=== PATIENT | female | born 1985 | race Caucasian/White ===

== ENCOUNTER 2018-10-22 03:35 | Emergency (ER) | payer BC ==
[~2018-10-22] VITALS: Ht 175.3 cm; Wt 148.8 kg
[2018-10-22 04:42] LABS: BILIRUBIN,URINE NEGATIVE (NEG); CLARITY,URINE CLEAR; COLOR,URINE YELLOW; NITRITE,URINE NEGATIVE (NEG); PH,URINE 5.5; PROTEIN,URINE NEGATIVE (NEG-TRACE); UROBILINOGEN,URINE 0.2 mg/dL (0.2 mg/dL)
[2018-10-22 04:45] LABS: BASO # 0.1 x10^3/uL (0.0-0.2); BASO % 1 % (0-3); EOS # 0.3 x10^3/uL (0.0-0.7); EOS % 4 % (0-3); HEMATOCRIT 39.5 % (36.0-47.0); HEMOGLOBIN 13.7 g/dL (12.0-15.5); LYMPH # 2.1 x10^3/uL (1.0-4.8); LYMPH % 28 % (24-48); MEAN CORPUSCULAR HEMOGLOBIN 32 pg (25-35); MEAN CORPUSCULAR HGB CONC 35 g/dL (31-37); MEAN CORPUSCULAR VOLUME 91 fL (79-100); MONO # 0.5 x10^3/uL (0.0-1.1); MONO % 7 % (0-9); NEUT # 4.5 x10^3/uL (1.8-7.7); NEUT % 59 % (31-73); PLATELET COUNT 193 x10^3/uL (140-400); RED BLOOD COUNT 4.35 x10^6/uL (3.50-5.40); RED CELL DISTRIBUTION WIDTH 14.1 % (11.5-14.5); WHITE BLOOD COUNT 7.5 x10^3/uL (4.0-11.0)
[2018-10-22 04:49] VITALS: BP 119/67
[2018-10-22 04:57] LABS: CALCIUM 9.1 mg/dL (8.5-10.1); CREATININE 0.9 mg/dL (0.6-1.0); GFR 72.6; POTASSIUM 3.6 mmol/L (3.5-5.1)
[2018-10-22 04:59] LABS: BACTERIA,URINE MODERATE /HPF (0-FEW); RBC,URINE 20-40 /HPF (0-2)
[2018-10-22 05:00] LABS: SQUAMOUS EPITHELIAL CELL,UR MANY /LPF
[2018-10-22 05:05] LABS: ALBUMIN 3.5 g/dL (3.4-5.0); MAGNESIUM 1.9 mg/dL (1.8-2.4); TOTAL BILIRUBIN 0.7 mg/dL (0.2-1.0)
--- NOTE | 2018-10-22 05:44 | RAD ---
EXAM: OBSTETRIC ULTRASOUND, <14 WEEKS. HISTORY: Vaginal bleeding in . COMPARISON: None. FINDINGS: Sonographic evaluation of the pelvis was performed transabdominally and transvaginally. The uterus is anteverted and measures 16.9 x 9.4 x 8.0 cm. A single intrauterine gestation measures 8 weeks 3 days. No heart motion is identified consistent with demise. The cervix is closed and measures 4.2 cm. The gestational sac is low within the endometrium, near the internal os. The right ovary measures 4.0 x 5.3 x 3.1 cm. It is enlarged by a simple dominant follicle or small cyst measuring 3.8 x 3.5 cm. The left ovary measures 3.5 x 3.1 x 1.4 cm. There is normal Doppler flow bilaterally. There is no adnexal mass. There is no significant free fluid. IMPRESSION: 1. Findings consistent with demise. 2. 3.8 cm right ovarian cyst versus dominant follicle. Electronically signed by: Josephine Venegas MD (10/22/2018 5:42 AM) [facility]
--- NOTE | 2018-10-22 06:17 | PHYS DOC ---
Past Medical History Past Medical History: No Pertinent History Past Surgical History: No Surgical History Additional Information: Nonsmoker Alcohol Use: None Drug Use: None Adult General Chief Complaint Chief Complaint: VAGINAL BLEEDING HPI HPI 33-year-old female presents with report of vaginal bleeding in at approximately 10.5 weeks. Patient is a . Patient reports history of spotting at approximately 8 weeks and the bleeding has not stopped but recently became worse. Patient reports she was seen by her TIN POT OPERATOR and was told everything have looked fine at that time. Patient denies vaginal discharge. Denies concern for STDs. Review of Systems Review of Systems Constitutional: Denies fever or chills Eyes: Denies redness or eye pain HENT: Denies nasal congestion or sore throat Respiratory: Denies cough or shortness of breath Cardiovascular: Denies chest pain or palpitations GI: Reports lower abdominal cramping; denies vomiting /TRAIN CONTROL ELECTRONIC TECHNICIAN: Denies dysuria or hematuria; reports bleeding in Musculoskeletal: Denies back pain or joint pain Integument: Denies rash or skin lesions Neurologic: Denies headache, focal weakness or sensory changes Complete systems were reviewed and found to be within normal limits, except as documented in this note. Allergies Allergies Allergies Coded Allergies Type Severity Reaction Last Updated Verified codeine Adverse Reaction Unknown 10/22/18 Yes Physical Exam Physical Exam Constitutional: Well developed, well nourished, no acute distress, non-toxic appearance HENT: Normocephalic, atraumatic, oropharynx moist Eyes: Conjunctiva normal, no discharge Neck: Normal range of motion, no tenderness, supple Cardiovascular: Heart rate normal, regular rhythm Lungs & Thorax: Bilateral breath sounds clear to auscultation, no wheezing Abdomen: Soft, lower abdominal/pelvic tenderness to palpation, no rebound tenderness/guarding/distention Pelvic Exam: Deferred by patient, patient reports recently had with OB and will follow closely with them Skin: Warm, dry, no erythema, no rash Back: No tenderness, no CVA tenderness Extremities: No tenderness, ROM intact, no edema Neurologic: Alert and oriented X 3, no focal deficits noted Psychologic: Affect normal, judgement normal Current Patient Data Vital Signs Vital Signs Date Time Temp Pulse Resp B/P (MAP) Pulse Ox O2 Delivery O2 Flow Rate FiO2 10/22/18 04:49 85 18 119/67 (84) 100 10/22/18 03:55 98.4 Room Air 98.4 Lab Values Laboratory Tests Test 10/22/18 03:40 10/22/18 03:52 10/22/18 04:35 Urine Collection Type Unknown Urine Color Yellow Urine Clarity Clear Urine pH 5.5 Urine Specific [place] 1.020 Urine Protein Negative mg/dL (NEG-TRACE) Urine Glucose (UA) Negative mg/dL (NEG) Urine Ketones (Stick) Negative mg/dL (NEG) Urine Blood Large (NEG) Urine Nitrite Negative (NEG) Urine Bilirubin Negative (NEG) Urine Urobilinogen Dipstick 0.2 mg/dL (0.2 mg/dL) Urine Leukocyte Esterase Small (NEG) Urine RBC 20-40 /HPF (0-2) Urine WBC 5-10 /HPF (0-4) Urine Squamous Epithelial Cells Many /LPF Urine Bacteria Moderate /HPF (0-FEW) Urine Mucus Marked /LPF POC Urine HCG, Qualitative Hcg positive (Negative) White Blood Count 7.5 x10^3/uL (4.0-11.0) Red Blood Count 4.35 x10^6/uL (3.50-5.40) Hemoglobin 13.7 g/dL (12.0-15.5) Hematocrit 39.5 % (36.0-47.0) Mean Corpuscular Volume 91 fL (79-100) Mean Corpuscular Hemoglobin 32 pg (25-35) Mean Corpuscular Hemoglobin Concent 35 g/dL (31-37) Red Cell Distribution Width 14.1 % (11.5-14.5) Platelet Count 193 x10^3/uL (140-400) Neutrophils (%) (Auto) 59 % (31-73) Lymphocytes (%) (Auto) 28 % (24-48) Monocytes (%) (Auto) 7 % (0-9) Eosinophils (%) (Auto) 4 % (0-3) H Basophils (%) (Auto) 1 % (0-3) Neutrophils # (Auto) 4.5 x10^3/uL (1.8-7.7) Lymphocytes # (Auto) 2.1 x10^3/uL (1.0-4.8) Monocytes # (Auto) 0.5 x10^3/uL (0.0-1.1) Eosinophils # (Auto) 0.3 x10^3/uL (0.0-0.7) Basophils # (Auto) 0.1 x10^3/uL (0.0-0.2) Maternal Serum HCG Beta Subunit 9862 mIU/mL (0-5) H Sodium Level 140 mmol/L (136-145) Potassium Level 3.6 mmol/L (3.5-5.1) Chloride Level 102 mmol/L (98-107) Carbon Dioxide Level 27 mmol/L (21-32) Anion Gap 11 (6-14) Blood Urea Nitrogen 12 mg/dL (7-20) Creatinine 0.9 mg/dL (0.6-1.0) Estimated GFR (Cockcroft-Gault) 72.6 BUN/Creatinine Ratio 13 (6-20) Glucose Level 101 mg/dL (70-99) H Calcium Level 9.1 mg/dL (8.5-10.1) Magnesium Level 1.9 mg/dL (1.8-2.4) Total Bilirubin 0.7 mg/dL (0.2-1.0) Aspartate Amino Transferase (AST) 17 U/L (15-37) Alanine Aminotransferase (ALT) 21 U/L (14-59) Alkaline Phosphatase 62 U/L (46-116) Total Protein 7.0 g/dL (6.4-8.2) Albumin 3.5 g/dL (3.4-5.0) Albumin/Globulin Ratio 1.0 (1.0-1.7) Laboratory Tests 10/22/18 04:35 Laboratory Tests 10/22/18 04:35 Microbiology 10/22/18 Urine Culture - Final, Complete 10/22/18 Urine Culture Result 1 ([id number]) - Final, Complete EKG EKG [] Radiology/Procedures Radiology/Procedures PROCEDURE: OB <14 WKS W/TV EXAM: OBSTETRIC ULTRASOUND, <14 WEEKS. HISTORY: Vaginal bleeding in . COMPARISON: None. FINDINGS: Sonographic evaluation of the pelvis was performed transabdominally and transvaginally. The uterus is anteverted and measures 16.9 x 9.4 x 8.0 cm. A single intrauterine gestation measures 8 weeks 3 days. No heart motion is identified consistent with demise. The cervix is closed and measures 4.2 cm. The gestational sac is low within the endometrium, near the internal os. The right ovary measures 4.0 x 5.3 x 3.1 cm. It is enlarged by a simple dominant follicle or small cyst measuring 3.8 x 3.5 cm. The left ovary measures 3.5 x 3.1 x 1.4 cm. There is normal Doppler flow bilaterally. There is no adnexal mass. There is no significant free fluid. IMPRESSION: 1. Findings consistent with demise. 2. 3.8 cm right ovarian cyst versus dominant follicle. Electronically signed by: Josephine Venegas MD (10/22/2018 5:42 AM) [facility] Course & Med Decision Making Course & Med Decision Making Pertinent Labs and Imaging studies reviewed. (See chart for details) Patient presents with vaginal bleeding in at approximately 10.5 weeks. Patient reports bleeding has become worse. Denies concern for STDs. Patient had been seen by her TIN POT OPERATOR at 8 weeks for same and at that time was noted that everything "looked good ". Labs obtained and posted to chart. Patient is Rh+. Ultrasound obtained with findings consistent for demise. Patient offered pelvic exam which patient declined. Patient reports she will follow back up closely with her OB. Patient stable for discharge with outpatient follow-up with PCP/OB-TRAIN CONTROL ELECTRONIC TECHNICIAN. Discussed findings and plan with patient and family, who acknowledge understanding and agreement. A copy of US report along with BHCG level and RH factor provided to patient to given to OB. Advised would need to h ave repeat BHCG level drawn. Dragon Disclaimer Dragon Disclaimer This electronic medical record was generated, in whole or in part, using a voice recognition dictation system. Departure Departure Impression: Primary Impression: Miscarriage Disposition: 01 HOME, SELF-CARE Condition: STABLE Referrals: NON,STAFF (PCP) Patient Instructions: Miscarriage, [id number] ROMANA BANKS DO Oct 22, 2018 06:17
== END 2018-10-22 06:27 | disposition home or self-care (01) ==
LOC: ER 03:35
DX: O03.9 Complete or unspecified spontaneous abortion without complication (principal); Z88.5 Allergy status to narcotic agent; Z3A.10 10 weeks gestation of pregnancy
CPT/HCPCS: 36415; 76801; 76817; 80053; 81001; 81025; 83735; 84702; 85025; 86901; 87086; 99285-25